=== PATIENT | male | born 1955 | race Caucasian/White ===

== ENCOUNTER 2017-07-23 01:22 | Outpatient (CLI) | payer MEDICARE, MEDICAID | END 2017-07-23 23:59 | disposition home or self-care (01) | LOC: DIABETIC 01:22 | PROVIDERS: ATTEND Specialist | DX: E11.65 Type 2 diabetes mellitus with hyperglycemia (principal) | CPT/HCPCS: G0108 ==

== ENCOUNTER → 2018-01-27 | Outpatient (CLI) | payer MEDICARE, MEDICAID | END | disposition home or self-care (01) | LOC: DIABETIC 03:52 | PROVIDERS: ATTEND Specialist | DX: E11.65 Type 2 diabetes mellitus with hyperglycemia (principal) | CPT/HCPCS: G0108 ==

== ENCOUNTER 2018-05-24 00:29 | Outpatient (CLI) | payer MEDICARE, MEDICAID | END 2018-05-24 23:59 | disposition home or self-care (01) | LOC: DIABETIC 00:29 | PROVIDERS: ATTEND Specialist | DX: E11.65 Type 2 diabetes mellitus with hyperglycemia (principal); Z79.82 Long term (current) use of aspirin; Z79.899 Other long term (current) drug therapy; Z88.2 Allergy status to sulfonamides; Z88.8 Allergy status to other drugs, medicaments and biological substances | CPT/HCPCS: G0108 ==

== ENCOUNTER 2018-08-25 00:48 | Outpatient (CLI) | payer MEDICARE, MEDICAID | END 2018-08-25 23:59 | disposition home or self-care (01) | LOC: DIABETIC 00:48 | PROVIDERS: ATTEND Specialist | DX: E11.65 Type 2 diabetes mellitus with hyperglycemia (principal); Z79.82 Long term (current) use of aspirin; Z79.899 Other long term (current) drug therapy; Z88.2 Allergy status to sulfonamides; Z79.84 Long term (current) use of oral hypoglycemic drugs; Z88.8 Allergy status to other drugs, medicaments and biological substances | CPT/HCPCS: G0108 ==

== ENCOUNTER 2018-11-25 00:44 | Outpatient (CLI) | payer MEDICARE, MEDICAID | END 2018-11-25 23:59 | disposition home or self-care (01) | LOC: DIABETIC 00:44 | PROVIDERS: ATTEND Specialist | DX: E11.65 Type 2 diabetes mellitus with hyperglycemia (principal); Z79.01 Long term (current) use of anticoagulants; Z79.899 Other long term (current) drug therapy | CPT/HCPCS: G0108 ==

== ENCOUNTER 2019-06-09 01:04 | Outpatient (CLI) | payer MEDICARE, MEDICAID | END 2019-06-09 23:59 | disposition home or self-care (01) | LOC: DIABETIC 01:04 | PROVIDERS: ATTEND Specialist | DX: E11.65 Type 2 diabetes mellitus with hyperglycemia (principal); Z79.82 Long term (current) use of aspirin; Z79.899 Other long term (current) drug therapy; Z79.01 Long term (current) use of anticoagulants; Z88.2 Allergy status to sulfonamides; Z88.8 Allergy status to other drugs, medicaments and biological substances | CPT/HCPCS: G0108 ==

== ENCOUNTER 2021-10-28 09:01 | Day surgery (SDC) | payer MEDICARE, MEDICAID ==
[~2021-10-28] VITALS: Ht 177.8 cm; Wt 89.7 kg
[2021-10-28] VITALS (14 sets, daily range): BP systolic 115–146; BP diastolic 69–91
[2021-10-28] MEDS ORDERED: diphenhydrAMINE 25mg capsule PO PRN (09:45)
[2021-10-28] MEDS ORDERED: normal saline 1,000 ML IV SCH (09:45)
[2021-10-28] MEDS ORDERED: WARF10TA45 PO (09:46)
[2021-10-28] MEDS ORDERED: DULA0.75 SQ (09:46)
[2021-10-28] MEDS ORDERED: ICOS1CAP2 PO (09:46)
[2021-10-28] MEDS ORDERED: ALIR150P3 SQ (09:46)
[2021-10-28] MEDS ORDERED: BUME1TAB8 PO (09:46)
[2021-10-28 10:33] LABS: BASOPHILS % (AUTO) 0.7 % (0-1); EOSINOPHILS # (AUTO) 0.1 X10'3 (0-0.9); EOSINOPHILS % (AUTO) 2.9 % (0-6); HEMATOCRIT 43.5 % (42.0-52.0); HEMOGLOBIN 14.7 g/dl (14.0-17.9); LYMPHOCYTES # (AUTO) 1.3 X10'3 (1.1-4.8); LYMPHOCYTES % (AUTO) 25.9 % (21-51); MEAN CORPUSCULAR HEMOGLOBIN 32.6 PG (27.0-31.0); MEAN CORPUSCULAR HGB CONC 33.8 g/dL (33.0-36.5); MEAN CORPUSCULAR VOLUME 96.4 FL (78-98); MEAN PLATELET VOLUME 8.1 FL (7.4-10.4); MONOCYTES # (AUTO) 0.5 X10'3 (0-0.9); MONOCYTES % (AUTO) 9.8 % (2-12); NEUTROPHILS # (AUTO) 3.1 X10'3 (1.8-7.7); NEUTROPHILS % (AUTO) 60.7 % (42-75); PLATELET COUNT 159 X10'3 (140-440); RED BLOOD COUNT 4.52 X10'6 (4.70-6.10); RED CELL DISTRIBUTION WIDTH 13.4 % (11.5-14.5); WHITE BLOOD COUNT 5.1 X10'3 (4.5-11.0)
[2021-10-28 10:48] LABS: CHLORIDE 105 MMOL/L (99-107); POTASSIUM 3.5 MMOL/L (3.5-5.1); SODIUM 141 MMOL/L (135-145)
[2021-10-28 10:59] LABS: ALBUMIN 3.5 G/DL (3.4-5.0); ANION GAP 11 (8-16); BLOOD UREA NITROGEN 19 MG/DL (7-18); BUN/CREATININE RATIO 22.9 (5.4-32.0); CALCIUM 8.8 MG/DL (8.5-10.1); CREATININE 0.83 MG/DL (0.60-1.10); GLUCOSE 133 MG/DL (70-104); TOTAL CARBON DIOXIDE 24.8 MMOL/L (24-32); eGFR > 90 ML/MIN
[2021-10-28] MEDS ORDERED: verapamil 2.5 mg/ml inj IV ONE ×2 (11:17→12:26)
[2021-10-28] MEDS ORDERED: midazolam 1 mg/ML 2ml injection ONE (11:17)
[2021-10-28] MEDS ORDERED: nitroGLYCERIN-Tridil 50MG/D5W 0 ML IV ONE (11:17)
[2021-10-28] MEDS ORDERED: iohexol 350 MG/ML 50ML vial IV ONE (11:18)
[2021-10-28] MEDS ORDERED: iohexol 350MG/ML 100ml bottle IV ONE (11:18)
[2021-10-28] MEDS ORDERED: heparin 1,000unit/ml 10ml vial 10 ML ONE (11:18)
[2021-10-28] MEDS ORDERED: fentaNYL/PF 50MCG/1 ML 2ML syringe ONE (11:18)
[2021-10-28] MEDS ORDERED: LIDOcaine 1% (10mg/ml)w/preservative inj. 20ml MDV ONE (11:18)
[2021-10-28] MEDS ORDERED: nitroGLYCERIN-Tridil 50MG/D5W 250 ML IV ONE (12:26)
[2021-10-28] MEDS ORDERED: HYDROcodone/acetaminophen 10/325mg tab PO PRN (13:25)
[2021-10-28] MEDS ORDERED: ondansetron/PF 4mg/2ml inj IV PRN (13:25)
[2021-10-28] MEDS ORDERED: proCHLORperazine 10 MG/2 ml inj IV PRN (13:25)
[2021-10-28] MEDS ORDERED: HYDROcodone/acetaminophen 5mg/325mg tablet PO PRN (13:25)
--- NOTE | 2021-10-28 14:10 | NUR ---
Went in to release pressure from right vascular band. Pt had a small amount of blood under band and on bed sheet. No active bleeding at this time. Pt denies pain, numbness or tingling of the right fingers and thumb. No hematoma present. Pulse ox 97% from right thumb. Holding vasc band air release at this time. Will reassess in 15 min.
--- NOTE | 2021-10-28 14:33 | NUR ---
Pt resting in bed. VS stable as charted. Pt site appears stable. No swelling or drainage at vasc band. Pt denies numbness and tingling. Reports pain at right wrist 3/10, non radiating. Pt refused pain medication at this time. Pt call light in reach and he will call if he changes his mind. Patient report given to Gregoria GARCIA, at bedside. Questions answered & plan of care reviewed.
--- NOTE | 2021-10-28 14:35 | NUR ---
Received report from Lidia GARCIA, VSS no C/O pain. Vasc band intact. No current bleeding noted.
--- NOTE | 2021-10-28 15:30 | NUR ---
Vasc band completely deflated, no new bleeding noted. VSS denies pain.
--- NOTE | 2021-10-28 16:00 | NUR ---
Vasc band completely removed, site cleaned and dressing applied. Written and Verbal DC instructions given to pt and mother, both verbalize understanding.
--- NOTE | 2021-10-28 16:15 | NUR ---
Pt amb in hallway gait steady, PIV DC cath intact. Pt able to dress self.
--- NOTE | 2021-10-28 16:35 | NUR ---
DC to home with mom, transferred to private car via pt able to transfer self to car. Steady on feet.
== END 2021-10-28 16:35 | disposition home or self-care (01) ==
LOC: SSTAY O 09:01
PROVIDERS: ATTEND Internal Medicine Cardiovascular Disease
DX: R53.83 Other fatigue (principal); I25.5 Ischemic cardiomyopathy; I25.118 Atherosclerotic heart disease of native coronary artery with other forms of angina pectoris; E78.5 Hyperlipidemia, unspecified; I10 Essential (primary) hypertension; E11.9 Type 2 diabetes mellitus without complications; G47.33 Obstructive sleep apnea (adult) (pediatric); D68.59 Other primary thrombophilia; M19.90 Unspecified osteoarthritis, unspecified site; E66.9 Obesity, unspecified; Z68.25 Body mass index [BMI] 25.0-25.9, adult; D68.51 Activated protein C resistance; Z95.5 Presence of coronary angioplasty implant and graft; Z79.899 Other long term (current) drug therapy; Z79.01 Long term (current) use of anticoagulants; Z86.718 Personal history of other venous thrombosis and embolism; Z98.890 Other specified postprocedural states; Z79.82 Long term (current) use of aspirin; Z87.891 Personal history of nicotine dependence; Z72.89 Other problems related to lifestyle; Z88.8 Allergy status to other drugs, medicaments and biological substances; Z88.2 Allergy status to sulfonamides
CPT/HCPCS: 36415; 80048; 82948; 83735; 85025; 85610; 93005; 93458; 99152; 99153; C1769; C1894; J1644; J2250; J3010; J3490; Q0163; Q9967; A4620; A5120

== ENCOUNTER 2021-11-04 14:38 | Emergency (ER) | payer MEDICARE, MEDICAID ==
[~2021-11-04] VITALS: Ht 177.8 cm; Wt 90.0 kg
[~2021-11-04 14:38] MED LIST: ALIR150P3 SQ; BUME1TAB8 PO; DULA0.75 SQ; ICOS1CAP2 PO; WARF10TA45 PO
[2021-11-04 14:40] VITALS: BP 113/65
[2021-11-04] MEDS ORDERED: CEPH-585 PO (15:28)
== END 2021-11-04 15:47 | disposition home or self-care (01) ==
LOC: ER 14:39
DX: I82.611 Acute embolism and thrombosis of superficial veins of right upper extremity (principal); I11.0 Hypertensive heart disease with heart failure; E11.9 Type 2 diabetes mellitus without complications; Z88.8 Allergy status to other drugs, medicaments and biological substances; Z88.6 Allergy status to analgesic agent; Z88.2 Allergy status to sulfonamides
CPT/HCPCS: 99283